=== PATIENT | male | born 1945 | race Hispanic/Latino ===

== ENCOUNTER 2017-03-15 06:31 | Inpatient (IN) | payer OTHER ==
[2017-03-12 14:41] LABS: BASOPHILS # (AUTO) 0.1 (0.0-0.1); BASOPHILS % 0.5 % (0.0-1.0); EOSINOPHILS # (AUTO) 0.3 (0.0-0.4); EOSINOPHILS % 3.1 % (0.0-6.0); HEMATOCRIT 43.5 % (38.2-49.6); HEMOGLOBIN 14.6 g/dL (14.0-18.0); LYMPHOCYTES # (AUTO) 2.2 (1.0-3.2); LYMPHOCYTES % 23.1 % (18.0-39.1); MEAN CORPUSCULAR HEMOGLOBIN 30.4 pg (28-32); MEAN CORPUSCULAR HGB CONC 33.6 g/dL (31-35); MEAN CORPUSCULAR VOLUME 90.4 fL (81-99); MONOCYTES # (AUTO) 1.1 (0.2-0.8); MONOCYTES % 11.2 % (4.4-11.3); NEUTROPHILS # (AUTO) 5.9 (2.1-6.9); NEUTROPHILS % 61.9 % (38.7-80.0); PLATELET COUNT 233 x10e3/uL (140-360); RED BLOOD COUNT 4.81 x10e6/uL (4.3-5.7); RED CELL DISTRIBUTION WIDTH 12.3 % (11.7-14.4)
[~2017-03-15] VITALS: Ht 162.6 cm; Wt 70.3 kg
[~2017-03-15 06:31] MED LIST: ASPIRIN81 MG PO; CEFAZOLIN SOD 2 GM/D5W 50ML 50 ML IV ONE; CELECOXIB 200 MG CAP ONE; DEXAMETHASONE SOD PHOS 10 MG/1 ML VIAL ONE; GABAPENTIN 300 MG CAP ONE; LISINOPRIL2.5 MG PO; METOPROLOL SUCC25 MG PO; NITROGLYCERIN0.4 MG SL; ROPIVACAINE 246.25 MG, EPINEPHRINE HCL 1:1000 0.5 MG, CLONIDINE HCL 0.08 MG, KETOROLAC ... INJ ONE; ZYRTEC10 M3 PO
[2017-03-15] MEDS ORDERED: CALCIUM CARBON500 MG PO (06:32)
[2017-03-15] MEDS ORDERED: VITAMIN D400 UNIT PO (06:32)
[2017-03-15] MEDS ORDERED: TRANEXAMIC ACID 1,000 MG/10 ML ML ONE (06:55)
[2017-03-15] MEDS ORDERED: BACITRACIN 50,000 UNIT VIAL ONE (06:55)
[2017-03-15] MEDS ORDERED: MUPIROCIN 2% OINT 22 GM TUBE ONE (06:55)
[2017-03-15] MEDS: SODIUM CHLORIDE 0.9% 1000ML 1,000 ML IV SCH ×2 (08:54→16:00)
[2017-03-15] MEDS ORDERED: PROMETHAZINE HCL (IM) 25 MG/ML VIAL INJ PRN (09:00)
[2017-03-15] MEDS: CELECOXIB 100 MG CAP PO SCH ×2 (09:00→17:15)
[2017-03-15] MEDS ORDERED: ACETAMINOPHEN 650 MG SUPP PR PRN (09:00)
[2017-03-15] MEDS ORDERED: KETOROLAC TROMETHAMINE 30 MG/ML VIAL IV PRN (09:00)
[2017-03-15] MEDS ORDERED: HYDROCODONE/APAP 5MG-325MG TAB PO PRN (09:00)
[2017-03-15] MEDS ORDERED: ZOLPIDEM TARTRATE 5 MG TAB PO PRN (09:00)
[2017-03-15] MEDS ORDERED: DOCUSATE SODIUM 100 MG CAP PO PRN (09:00)
[2017-03-15] MEDS ORDERED: DIPHENHYDRAMINE HCL INJ 50 MG/ML VIAL IM/IV PRN (09:00)
[2017-03-15] MEDS ORDERED: HYDROCODONE/APAP 7.5MG-325MG 1 EA TAB PO PRN (09:00)
[2017-03-15] MEDS: ASPIRIN 325 MG TAB PO SCH ×2 (09:00→17:15)
[2017-03-15] MEDS ORDERED: ONDANSETRON HCL INJ 2 MG/ML VIAL IV PRN (09:00)
--- NOTE | 2017-03-15 10:57 | Diagnostic Imaging Report ---
PROCEDURE: X-RAY RIGHT KNEE, ONE OR TWO VIEWS COMPARISON: None. INDICATIONS:POST OP RIGHT KNEE FINDINGS: See conclusion. CONCLUSION: Status post total right knee replacement with surrounding soft tissue swelling, air and lee consistent with recent surgery. No acute fractures. Good position of the prosthesis. Jose Rosado D.O. Dictated by: Jose Rosado D.O. on 03/15/2017 at 11:05 Electronically approved by: Jose Rosado D.O. on 03/15/2017 at 11:05
[2017-03-15 12:00] VITALS: BP 113/58
[2017-03-15 12:49] VITALS: BP 113/58
[2017-03-15 12:50] VITALS: BP 113/58
[2017-03-15] MEDS ORDERED: LIDOCAINE HCL 2% LOCAL INJ 5 ML SDV VIAL INJ ONE (12:51)
[2017-03-15] MEDS ORDERED: ONDANSETRON HCL INJ 2 MG/ML VIAL ONE (12:51)
[2017-03-15] MEDS ORDERED: SEVOFLURANE INHAL SOLN 250 ML PEN BTL ONE (12:51)
[2017-03-15] MEDS ORDERED: EPHEDRINE SULFATE INJ 50 MG/10 ML SYR ONE (12:51)
[2017-03-15] MEDS ORDERED: PROPOFOL IV EMULSION 10 MG/ML 20 ML VIAL ONE (12:51)
[2017-03-15] MEDS: ACETAMINOPHEN 1000 MG/100 ML IV SCH ×3 (13:07→23:33)
[2017-03-15] MEDS ORDERED: MIDAZOLAM HCL 2 MG/2 ML VIAL ONE (13:23)
[2017-03-15] MEDS ORDERED: FENTANYL CITRATE/PF 100MCG/2 ML INJ ONE (13:23)
[2017-03-15] MEDS ORDERED: EPINEPHRINE HCL INJ 1 MG/ML AMP ONE (13:40)
[2017-03-15] MEDS ORDERED: BUPIVACAINE 0.25% 30ML SDV INJ ONE (13:40)
[2017-03-15] MEDS ORDERED: CEFAZOLIN SOD 1 GM/NS 50ML 50 ML IV SCH (14:00)
[2017-03-15] MEDS: CEFAZOLIN SOD 1 GM VIAL IV SCH ×2 (15:00→21:46)
[2017-03-15 16:00] VITALS: BP 110/59
[2017-03-15 20:00] VITALS: BP 135/59
[2017-03-16] VITALS: BP 117/56
[2017-03-16 04:00] VITALS: BP 116/61
[2017-03-16] MEDS: ACETAMINOPHEN 1000 MG/100 ML IV SCH (05:19)
[2017-03-16] MEDS: CEFAZOLIN SOD 1 GM VIAL IV SCH (05:19)
[2017-03-16] MEDS: SODIUM CHLORIDE 0.9% 1000ML 1,000 ML IV SCH (05:45)
[2017-03-16 07:11] LABS: HEMATOCRIT 34.7 % (38.2-49.6); HEMOGLOBIN 11.7 g/dL (14.0-18.0)
[2017-03-16 07:42] VITALS: BP 113/69
[2017-03-16 08:00] VITALS: BP 113/69
[2017-03-16] MEDS ORDERED: ACETAMINOPHEN 1000 MG/100 ML IV PRN (09:00)
[2017-03-16] MEDS: CELECOXIB 100 MG CAP PO SCH (09:00)
[2017-03-16] MEDS: ASPIRIN 325 MG TAB PO SCH (09:00)
--- NOTE | 2017-03-16 11:34 | Operative Report ---
DATE OF PROCEDURE: March 15, 2017 PREOPERATIVE DIAGNOSIS: Osteoarthritis, right knee. POSTOPERATIVE DIAGNOSIS: Osteoarthritis, right knee. PROCEDURE: Right total knee arthroplasty. PROPAGATION MANAGER: Bob Quiros PA-C The patient was brought to the operating room for induction of anesthesia. Throughout this case, my PA's assistance was necessary for retraction of soft tissue and positioning of the extremity. This allows for efficient and technically successful execution of the operation and is considered medically necessary. INDICATIONS: The patient is a 71-year-old gentleman with end-stage arthritis of his right knee. He has failed conservative management and would like to proceed with a knee replacement. The risks and benefits of the surgery have been discussed at length. The importance of his participation in therapy has been stressed. He states he understands and wishes to proceed. DESCRIPTION OF PROCEDURE: The patient was brought to the operating room and placed under general anesthetic. He received prophylactic antibiotics, a regional block and tranexamic acid in the holding area. His right lower extremity was prepped and draped in a sterile manner. A preoperative time-out was performed. The extremity was exsanguinated and a proximal tourniquet was inflated to 300 mmHg. An anterior approach with a medial parapatellar arthrotomy was performed. Clear synovial fluid was removed from the joint. Soft tissue releases were performed to bring the knee up into flexion with the patella everted. Meniscal remnants and marginal osteophytes were removed. The cruciate ligaments were sacrificed. A Castillo and Nephew posterior stabilized knee system was used. An extramedullary cutting guide was used to resect the proximal tibia. The tibial baseplate was a size #5. There was fairly dense sclerotic bone on the medial aspect. Additional 2.5 mm drill holes were placed for ultimate improved DATE OF PROCEDURE: March 15, 2017 cement fixation. The central fin punch was impacted. Attention was directed towards the distal femur. An intramedullary cutting guide was used to resect the distal femur in 6 degrees of valgus and rotation referenced off of a combination of landmarks including Juan's line, the epicondylar axis in the posterior condyles. The femoral component was also a size #5. The anterior and posterior cuts were made. Trial reductions were performed. A 9 mm ultra-congruent tibial insert was felt to provide optimal soft tissue balancing in flexion and extension. The patella was resurfaced with a 32 mm x 7.5 mm patellar button. The thickness was checked before and after and was right around 23 mm. Patellar tracking was noted to be concentric. The trial implants were then removed. The knee was thoroughly irrigated with a shower-tip pulsatile lavage. A 100 mL premixed pericapsular JOHN injection was placed into the soft tissue. The components were cemented into place using a single mix of high-viscosity Simplex cement preloaded with antibiotics. Care was taken to remove extravasated cement. The wound was further irrigated while the cement cured. The arthrotomy was then closed with interrupted #1 Ethibond. The knee was put through flexion and extension after each stitch to ensure a secure closure. The skin was closed with subcuticular Vicryl and lee. A sterile bandage was applied. The patient was extubated and transported to the recovery room in stable condition. Blood loss was minimal. All needle and sponge counts were correct. Job#: [id number] SAK
[2017-03-16 11:40] VITALS: BP 126/58
[2017-03-16] MEDS ORDERED: ASPIRIN325 MG PO (12:19)
[2017-03-16] MEDS ORDERED: CELECOXIB 200 MG CAP PO SCH (17:00)
== END 2017-03-16 14:58 | disposition home or self-care (01) | DRG 470 ==
LOC: OR 06:31 → MED/SURG 11:02
PROVIDERS: ADMIT Specialist; ATTEND Specialist
PROC: 0SRC0J9 Replacement of Right Knee Joint with Synthetic Substitute, Cemented, Open Approach (ICD-10-PCS; principal; 2017-03-15 07:30)
DX: M17.11 Unilateral primary osteoarthritis, right knee (principal); I10 Essential (primary) hypertension; K29.70 Gastritis, unspecified, without bleeding
CPT/HCPCS: 36415; 85014; 85018; 85025; 86850; 86900; 86920; 93005; C1713; J0171; J0690; J1100; J1885; J2001; J2250; J2405; J2795; J7030

== ENCOUNTER 2018-09-19 05:30 | Observation (INO) | payer MEDICARE ==
--- NOTE | 2018-09-16 11:32 | Diagnostic Imaging Report ---
EXAM: CHEST 2 VIEWS, PA and lateral DATE: 09/16/2018 Time stamp on exam: 11:11 AM INDICATION: Preoperative for knee surgery COMPARISON: None FINDINGS: LINES/TUBES: None LUNGS: No consolidations or edema. PLEURA: Pleural-parenchymal scarring involving the left upper lung field laterally. HEART AND MEDIASTINUM: Normal size and contour. BONES AND SOFT TISSUES: No acute findings. IMPRESSION: No acute thoracic abnormality. Signed by: Dr. Jose Rosado DO on 09/16/2018 11:29 AM
[2018-09-16 11:41] LABS: BASOPHILS % 0.5 % (0.0-1.0); EOSINOPHILS # (AUTO) 0.3 (0.0-0.4); EOSINOPHILS % 4.2 % (0.0-6.0); HEMATOCRIT 42.2 % (38.2-49.6); HEMOGLOBIN 14.1 g/dL (14.0-18.0); LYMPHOCYTES # (AUTO) 1.8 (1.0-3.2); LYMPHOCYTES % 22.4 % (18.0-39.1); MEAN CORPUSCULAR HEMOGLOBIN 30.4 pg (28-32); MEAN CORPUSCULAR HGB CONC 33.4 g/dL (31-35); MEAN CORPUSCULAR VOLUME 90.9 fL (81-99); MONOCYTES # (AUTO) 0.9 (0.2-0.8); MONOCYTES % 11.7 % (4.4-11.3); NEUTROPHILS # (AUTO) 4.9 (2.1-6.9); NEUTROPHILS % 60.7 % (38.7-80.0); PLATELET COUNT 225 x10e3/uL (140-360); RED BLOOD COUNT 4.64 x10e6/uL (4.3-5.7)
[~2018-09-19] VITALS: Ht 162.6 cm; Wt 78.5 kg
[~2018-09-19 05:30] MED LIST changes: +ASPIR 8181 MG PO; +ASPIRIN325 MG PO; +ATORVASTATIN CA20 MG PO; +CALCIUM CARBON500 MG PO; -CEFAZOLIN SOD 2 GM/D5W 50ML 50 ML IV ONE; -CELECOXIB 200 MG CAP ONE; -DEXAMETHASONE SOD PHOS 10 MG/1 ML VIAL ONE; -GABAPENTIN 300 MG CAP ONE; +PAROXETINE HCL20 MG PO; -ROPIVACAINE 246.25 MG, EPINEPHRINE HCL 1:1000 0.5 MG, CLONIDINE HCL 0.08 MG, KETOROLAC ... INJ ONE; +ROPIVACAINE 246.25 MG, EPINEPHRINE HCL 1:1000 1ML 0.5 MG, CLONIDINE HCL 0.08 MG, KETORO... INJ ONE; +VITAMIN D400 UNIT PO
--- OUTSIDE RECORDS SUMMARY | 2018-09-19 05:37 | XMS REPORT ---
[facility] Address Unknown Phone Unavailable Care Team Providers Care Publicity Manager Name Role Phone PILY MORELOS Unavailable Unavailable Problems This patient has no known problems. Allergies, Adverse Reactions, Alerts This patient has no known allergies or adverse reactions. Medications This patient has no known medications. Results Test Description Test Time Test Comments Text Results Atomic Results Result Comments CHEST 2 VIEWS 2018-09-16 11:28:00 [place] [address] Patient Name: GEOVANNY SANDY MR #: [id number] : 1945 Age/Sex: 73/M Req #: [id number] Adm Physician: Ordered by: PILY MORELOS MD Report #: [id number] Location: OR Room/Bed: Procedure: [id number] DX/CHEST 2 VIEWS Exam Date: 09/16/18 Exam Time: 1030 REPORT STATUS: Signed EXAM: CHEST 2 VIEWS, PA and lateral DATE: 09/16/[address] amp on exam: 11:11 AM INDICATION: Preoperative for knee surgery COMPARISON: None FINDINGS: LINES/TUBES: None LUNGS: No consolidations or edema. PLEURA: Pleural-parenchymal scarring involving the left upper lung field laterally. HEART AND MEDIASTINUM: Normal size and contour. BONES AND SOFT TISSUES: No acute findings. IMPRESSION: No acute thoracic abnormality. Signed by: Dr. Hi Rosado DO on 09/16/2018 11:29 AM Dictated By: HI ROSADO DO 28 Transcribed By: PENNY on 09/16/181128 COPY TO: PILY MORELOS MD KNEE RIGHT 1-2 VIEWS [place] [address] Patient Name: GEOVANNY SANDY MR #: [id number] : 1945 Age/Sex: 71/M Req #: [id number] Adm Physician: PILY MORELOS MD Ordered by: PILY MORELOS MD Report #: [id number] Location: MED/SURG Room/Bed: [facility] Procedure: [id number] DX/KNEE RIGHT 1-2 VIEWS Exam Date: 03/15/17 Exam Time: 0916 REPORT STATUS: Signed PROCEDURE: X-RAY RIGHT KNEE, ONE OR TWO VIEWS COMPARISON: None. INDICATIONS: POST OP RIGHT KNEE FINDINGS: See conclusion. CONCLUSION: Status post total right knee replacement with surrounding soft tissue swelling, air and lee consistent with recent surgery. No acute fractures. Good position of the prosthesis. Hi Rosado D.O. Dictated by: Hi Rosado D.O. on 03/15/2017 at 11:05 Electronically approved by: Hi Rosado D.O. on 03/15/2017 at 11:05 Dictated By: HI ROSADO DO 04 Transcribed By: EMILY on 03/15/171104 COPY TO: PILY MORELOS MD
[2018-09-19] MEDS ORDERED: GABAPENTIN 300 MG CAP ONE (05:58)
[2018-09-19] MEDS ORDERED: DEXAMETHASONE SOD PHOS 10 MG/1 ML VIAL ONE (05:58)
[2018-09-19] MEDS ORDERED: CELECOXIB 200 MG CAP ONE (05:58)
[2018-09-19] MEDS ORDERED: CEFAZOLIN SOD 1 GM/NS 50ML 100 ML IV ONE (05:59)
[2018-09-19] MEDS ORDERED: VANCOMYCIN HCL 1,000 MG ONE (06:00)
[2018-09-19] MEDS ORDERED: SODIUM CHLORIDE 0.9% 500ML 500 ML ONE (06:00)
[2018-09-19] MEDS ORDERED: BACITRACIN 50,000 UNIT VIAL ONE (06:01)
[2018-09-19] MEDS ORDERED: TRANEXAMIC ACID 1,000 MG/10 ML ML ONE (06:01)
[2018-09-19] MEDS ORDERED: METOPROLOL TART25 MG PO (06:27)
[2018-09-19] MEDS ORDERED: ROPIVACAINE 246.25 MG, EPINEPHRINE HCL 1:1000 1ML 0.5 MG, CLONIDINE HCL 0.08 MG, KETORO... INJ ONE ×5 (07:30)
[2018-09-19] MEDS ORDERED: SODIUM CHLORIDE 0.9% 1000ML 1,000 ML IV SCH (08:37)
[2018-09-19] MEDS ORDERED: DIPHENHYDRAMINE HCL INJ 50 MG/ML VIAL IM/IV PRN (08:45)
[2018-09-19] MEDS ORDERED: PROMETHAZINE HCL (IM) 25 MG/ML VIAL INJ PRN (08:45)
[2018-09-19] MEDS ORDERED: ONDANSETRON HCL INJ 2MG/ML 2ML 2 MG/ML VIAL IV PRN (08:45)
[2018-09-19] MEDS ORDERED: KETOROLAC TROMETHAMINE 30 MG/ML VIAL IV PRN ×2 (08:45→10:00)
[2018-09-19] MEDS ORDERED: HYDROCODONE/APAP 7.5MG-325MG 1 EA TAB PO PRN (08:45)
[2018-09-19] MEDS ORDERED: HYDROCODONE/APAP 5MG-325MG TAB PO PRN (08:45)
[2018-09-19] MEDS ORDERED: DOCUSATE SODIUM 100 MG CAP PO PRN (08:45)
[2018-09-19] MEDS ORDERED: ZOLPIDEM TARTRATE 5 MG TAB PO PRN (08:45)
[2018-09-19] MEDS ORDERED: ACETAMINOPHEN 650 MG SUPP PR PRN (08:45)
[2018-09-19] MEDS ORDERED: CELECOXIB 100 MG CAP PO SCH (09:00)
--- NOTE | 2018-09-19 09:30 | NUR ---
RECEIVED REPORT FROM ONOFRE IN PACU AWAITING FOR PT TO ARRIVE TO FLOOR
[2018-09-19 09:45] VITALS: BP 123/69
--- NOTE | 2018-09-19 09:45 | NUR ---
RECEIVED PT TO FLOOR AA0X3 ( DROWSY), DAUGHTER IS AT BEDSIDE PT IS IN NO S.S OF DISTRESS DENIES PAIN PT HAS A LEFT HU WRAP COVERING LEFT TOTAL KNEE REPLACEMENT TODAY DRESSING IS DRY AND INTACT PT HAS BILATERAL FOOT PUMPS PRESENT AND SED ON RIGHT LEG PT HAS AN IV ACCESS TO THE RIGHT HAND 2O WITH LR RUNNING PT IS ON CARDIAC DIET, DENIES BEING HUNGRY STATES HE WANTS TO WAIT FOR LUNCH WILL CONTINUE TO MONITOR PT AT THIS TIME , SIDE RAILSX2, BED WHEELS LOCKED, CALL LIGHT IS WITHIN EASY REACH, INSTRUCTED TO CALL FOR ASSISTANCE IF NEEDED
[2018-09-19 09:47] VITALS: BP 123/67
--- NOTE | 2018-09-19 10:12 | Diagnostic Imaging Report ---
Exam: Left knee 2 views History: Postoperative Comparison: None. Findings: See impression Impression: Postsurgical changes of total left knee arthroplasty with intact hardware and expected subcutaneous gas and skin lee. Signed by: Dr. Don Phelps M.D. on 09/19/2018 10:09 AM
--- NOTE | 2018-09-19 10:16 | NUR ---
LEFT MD LAUREN A VOICEMAIL REGARDING CONSULT FOR [facility].
[2018-09-19] MEDS: ASPIRIN 325 MG TAB PO SCH ×2 (10:48→16:38)
--- NOTE | 2018-09-19 10:49 | NUR ---
MD LEONIDAS BLAKE RESUMPTION OF HOME MEDICATION
--- NOTE | 2018-09-19 11:10 | Operative Report ---
DATE OF PROCEDURE: 09/19/2018 SURGEON: Don Anderson MD CHIEF SUPPLY CHAIN OFFICER: Bob Quiros PA-C PREOPERATIVE DIAGNOSIS: Osteoarthritis, left knee. POSTOPERATIVE DIAGNOSIS: Osteoarthritis, left knee. PROCEDURE: Left total knee arthroplasty. INDICATIONS: The patient is a 73-year-old gentleman, who has end-stage arthritis of his left knee. He has failed conservative management and would like to proceed with a left total knee replacement. He has been through a right total knee replacement a few years ago. He is happy with the progress and understands the risks and benefits of the procedure. PROCEDURE IN DETAIL: The patient was brought to the operating room and placed under general anesthetic. He received a regional block, tranexamic acid and prophylactic antibiotics in the holding area. His left lower extremity was prepped and draped in a sterile manner. A preoperative time-out was performed. The extremity was exsanguinated and a proximal tourniquet was inflated to 300 mmHg. An anterior approach with a medial parapatellar arthrotomy was performed. Clear synovial fluid was removed from the joint. Soft tissue releases were performed to bring the knee up into flexion with the patella everted. Meniscal remnants, marginal osteophytes in the anterior cruciate ligament were resected. A Castillo and [employer] knee system was used. An extramedullary cutting guide was used to resect the proximal tibia. The tibial base plate was a size #5. Dense sclerotic bone on the medial compartment was further drilled for better ultimate cement fixation. The tibial base plate was a size 5. This central fin punch was impacted and attention was directed towards the distal femur. An intramedullary cutting guide was used to resect the distal femur in 5 degrees of valgus. External rotation was referenced off a combination of landmarks including [place] line, the epicondylar axis and the posterior condyles. The femoral component was also a size #5. The anterior and posterior cuts were made. Trial reduction was performed. A 9 mm ultracongruent tibial insert provided appropriate soft tissue balancing in full extension and 90 degrees of flexion. The patella was then resurfaced with a 32 mm x 9 mm patellar button. The thickness was checked before and after and was right around 25 mm. Patellar tracking was noted to be concentric. The trial implants were removed. The knee was thoroughly irrigated with a shower tip pulsatile lavage. A 100 mL premixed pericapsular JOHN injection was placed into the surrounding soft tissue. The components were cemented into place using a single mix of Palacos cement preloaded with antibiotics. Care was taken to remove all extravasated cement. The wound was further irrigated while the cement cured. 500 mg of vancomycin powder was sprinkled into the joint. The bone cuts had been lubricated and the knee had been irrigated throughout the case with a spray mixture of polymyxin and vancomycin spray. The arthrotomy was then closed with interrupted #1 Ethibond. The knee was put through flexion and extension to ensure a secure closure. The skin was closed with subcuticular Vicryl and lee. A sterile Aquacel bandage was applied. The patient was extubated and transported to the recovery room in stable condition. Blood loss was minimal. All needle and sponge counts were correct. Don Anderson MD DR/MARIA TERESA /[id number]
[2018-09-19] MEDS: ACETAMINOPHEN 1000 MG/100 ML IV SCH ×3 (12:10→23:46)
[2018-09-19 12:24] VITALS: BP 125/58
[2018-09-19] MEDS: CEFAZOLIN SOD 1 GM/NS 50ML 50 ML IV SCH ×2 (14:30→21:33)
[2018-09-19] MEDS: METOPROLOL TARTRATE 25 MG TAB PO SCH (15:38)
--- NOTE | 2018-09-19 16:02 | NUR ---
pt voided s/p left knee replacement (500cc into urinal)
[2018-09-19] MEDS: CELECOXIB 200 MG CAP PO SCH (16:38)
[2018-09-19] MEDS ORDERED: SEVOFLURANE INHAL SOLN 250 ML PEN BTL ONE (17:27)
[2018-09-19] MEDS ORDERED: LIDOCAINE HCL 2% LOCAL INJ 5 ML SDV VIAL INJ ONE (17:27)
[2018-09-19] MEDS ORDERED: ONDANSETRON HCL INJ 2MG/ML 2ML 2 MG/ML VIAL ONE (17:27)
[2018-09-19] MEDS ORDERED: EPHEDRINE SULFATE INJ 50 MG/10 ML SYR ONE (17:27)
[2018-09-19] MEDS ORDERED: KETOROLAC TROMETHAMINE 30 MG/ML VIAL ONE (17:27)
[2018-09-19] MEDS ORDERED: PROPOFOL IV EMULSION 10 MG/ML 20 ML VIAL ONE (17:27)
[2018-09-19] MEDS ORDERED: LIDOCAINE 2% /EPINEPHRINE 20 ML SDV INJ ONE (18:09)
[2018-09-19] MEDS ORDERED: ROPIVACAINE 0.5% 5 MG/ML 30 ML SDV ONE (18:09)
[2018-09-19] MEDS ORDERED: MIDAZOLAM HCL 2 MG/2 ML VIAL ONE (18:42)
[2018-09-19] MEDS ORDERED: FENTANYL CITRATE/PF 100MCG/2 ML INJ ONE (18:42)
[2018-09-19 20:08] VITALS: BP 123/58
[2018-09-19] MEDS ORDERED: ATORVASTATIN 40 MG TAB PO SCH (21:00)
[2018-09-19] MEDS ORDERED: ATORVASTATIN 20 MG TAB PO SCH (21:00)
[2018-09-19 21:51] VITALS: BP 123/58
[2018-09-19 23:55] VITALS: BP 115/57
[2018-09-20 03:58] VITALS: BP 110/65
--- NOTE | 2018-09-20 04:00 | NUR ---
PATIENT WAS OBSERVED TO HAVE SCANT AMOUNT OF BLOOD FROM THE HU WRAP ON THE LEFT LEG. RN ASKED PATIENT IF HE BUMP HIMSELF SOMEWHERE OR HE IS IN PAIN. PATIENT STATED HE DID NOT BUMP HIS LEFT LEG ANYWHERE BUT HE GOT UP BY HIMSELF EARLIER TO REMOVE THE WALL CLOCK BECAUSE THE TICKING SOUND KEEPS HIM AWAKE. HE LOWERED HIMSELF TO THE FLOOR WHEN HE FELT THAT HE WILL BE OUT OF BALANCED TO PREVENT FROM FALLING. HE THEN PICK HIMSELF UP AFTER FEW MINUTES AND WENT BACK TO BED BY HIMSELF. PATIENT DID NOT NOTIFY ANY STAFF. HE IS AWARE THAT HE NEEDS ASSISTANCE WHEN HE WANTS TO GET OUT OF THE BED. VITAL SIGNS WITHIN NORMAL LIMITS. MD NOTIFIED.
--- NOTE | 2018-09-20 05:30 | NUR ---
PATIENT DAUGHTER IS UNABLE TO REACH. NO ANSWER PHONE NUMBER
[2018-09-20] MEDS: ACETAMINOPHEN 1000 MG/100 ML IV SCH (05:43)
[2018-09-20 05:57] LABS: HEMATOCRIT 33.4 % (38.2-49.6); HEMOGLOBIN 11.1 g/dL (14.0-18.0)
--- NOTE | 2018-09-20 06:00 | NUR ---
CPM STARTED AT 60
[2018-09-20] MEDS: CEFAZOLIN SOD 1 GM/NS 50ML 50 ML IV SCH (06:17)
--- NOTE | 2018-09-20 07:15 | NUR ---
PT RESTING IN BED AA0X3. PT IS CURRENTLY ON CPM TOLERATING WELL LEFT KNEE DRESSING IS SEMI SATURATED WITH DRY BLOOD NO ACTIVE BLEEDING NOTED BILATERAL SEDS PRESENT AND FOOT PUMPS IV ACCESS NOT PATENT . DC PRESSURE DRESSING APPLIED AND TAPED WILL CONTINUE TO MONITOR PT CLOSELY, SIDE RAILSX2, BED WHEELS LOCKED, CALL LIGHT IS WITHIN EASY REACH, INSTRUCTED TO CALL FOR ASSISTANCE IF NEEDED
[2018-09-20] MEDS ORDERED: ACETAMINOPHEN 1000 MG/100 ML IV PRN (08:45)
[2018-09-20 08:50] VITALS: BP 113/53
[2018-09-20 09:00] VITALS: BP 113/53
[2018-09-20] MEDS: METOPROLOL TARTRATE 25 MG TAB PO SCH (09:00)
[2018-09-20] MEDS ORDERED: LISINOPRIL 2.5 MG TAB PO SCH (09:00)
[2018-09-20] MEDS ORDERED: PAROXETINE HCL 20 MG TAB PO SCH (09:00)
[2018-09-20] MEDS: CELECOXIB 200 MG CAP PO SCH (09:00)
[2018-09-20] MEDS: ASPIRIN 325 MG TAB PO SCH (09:00)
[2018-09-20] MEDS ORDERED: LISINOPRIL 10 MG TAB PO SCH (09:00)
--- NOTE | 2018-09-20 10:55 | NUR ---
Visit made by the Spiritual Care Department Pastoral Visitor, Cheri Perdue. PV provided pastoral presence, prayer, hospitality, and supportive listening. Pastoral Visitor informed pt/family of the scope of [employer] and availability. SARAHI ART Track Broom Operator Spiritual Care Department O: [phone] Pager: [phone] ([phone] number calling from)
[2018-09-20 11:56] VITALS: BP 116/76
[2018-09-20] MEDS ORDERED: ONDANSETRON HCL 4 MG ORAL DISINTEGRATING TAB PO PRN (12:45)
--- NOTE | 2018-09-20 14:08 | NUR ---
cleaned left knee surgical site with saline and sterile gauze. covered with fresh aquacel dressing. gave pt dressing change supplies prn pt discharge instruction and prescriptions given. pt verbalized understanding pt has no iv access pt is now off unit to home via wheel chair
--- NOTE | 2018-12-22 06:12 | Discharge Summary ---
CHIEF COMPLAINT: Left knee pain. HISTORY OF PRESENT ILLNESS: This patient is a 73-year-old male, who complains of left knee pain. His x-rays are consistent with end-stage osteoarthritis of the left knee. He has failed conservative management and would like to proceed with more aggressive intervention. The risks and benefits of a left total knee replacement were explained. The patient states he understands and wished to proceed. HOSPITAL COURSE: The patient underwent a left total knee replacement without complications. He was then transferred to the recovery room and then the floor in stable condition. He did nicely with physical therapy. He was able to go home on postoperative day #1. PRINCIPAL DIAGNOSIS: Osteoarthritis, left knee. PRINCIPAL PROCEDURE: Left total knee replacement. DISCHARGE INSTRUCTIONS: The patient was discharged home. He had home health and physical therapy arranged. He could be weightbearing as tolerated with a rolling walker. He was to take aspirin twice a day for deep venous thrombosis prophylaxis. He was to resume his home medications as directed. He was instructed to follow up in our office in 8 to 10 days. Dictated by Bob Quiros PA-C MD MARILEE Brown/PRASHANTL /[id number] cc: Bob Quiros PA-C
== END 2018-09-20 14:09 | disposition home health service (06) ==
LOC: OR 05:30 → PACU V 08:39 → MED/SURG 09:38
PROVIDERS: ADMIT Specialist; ATTEND Specialist
DX: M17.0 Bilateral primary osteoarthritis of knee (principal); I10 Essential (primary) hypertension; K29.70 Gastritis, unspecified, without bleeding; Z96.651 Presence of right artificial knee joint
CPT/HCPCS: 27447; 36415 ×2; 71046; 73560; 85014; 85018; 85025; 86850; 86900; 86920; 93005; 97110; 97116 ×2; 97161; C1713 ×2; G0378 ×2; J0131 ×2; J0171 ×2; J0690 ×2; J1100; J1885 ×2; J2001 ×2; J2250; J2405; J2704; J2795 ×2; J3370; J7030; J7040; J3010

== ENCOUNTER → 2019-05-26 | Outpatient (CLI) | payer OTHER ==
[~2019-05-26] MED LIST changes: +METOPROLOL TART25 MG PO; -ROPIVACAINE 246.25 MG, EPINEPHRINE HCL 1:1000 1ML 0.5 MG, CLONIDINE HCL 0.08 MG, KETORO... INJ ONE
--- NOTE | 2019-06-07 07:15 | Polysomnography ---
DATE OF STUDY: 05/26/2019 REFERRING PHYSICIAN: STUDY PERFORMED: Titration polysomnography. LOCATION: [facility]. FINDINGS: Mr. Hernández is a 74-year-old gentleman with height of 5 feet and 4 inches, weight of 182 pounds, BMI of 31.2, neck size of 15.5 and [place] score of 6, was referred to [facility] for a titration study. During this test, patient was in bed for 374 minutes. Total sleep time was 256 minutes with a sleep efficiency of 68.4%. Sleep onset was at 19.5 minutes, REM latency was 72.5 minutes. The patient spent 8.2% of the sleep time in stage I, 49% of the time in stage 2, 12.5% in stage III, and 29.7% of the time in REM sleep. Heart rate varied between 42 to 100 per minute. There was no significant cardiac event. The patient continued to exhibit significant periodic limb movement with the index of 20.6 times per hour. As per protocol, he was initiated on the CPAP at 5 cm of water and the final pressure was achieved at the CPAP of 12 cm of water. His AHI at 12 cm of water was 0.7 events per hour. RECOMMENDATIONS: 1. Based on this study, patient will be initiated on CPAP at 12 cm of water with a mask of his choice. 2. Avoid sedative, hypnotics, narcotics, alcohol, antihistamines. 3. Once patient starts using the CPAP machine, evaluate in 2 months for effectiveness of therapy and any technical issues which need to be addressed. If required, he can be referred to my office for further evaluation. Mike Bower MD MP/MARIA TERESA /[id number]
== END ==
LOC: SLEEP 19:21
PROVIDERS: ATTEND Internal Medicine
DX: G47.33 Obstructive sleep apnea (adult) (pediatric) (principal)
CPT/HCPCS: 95811

== ENCOUNTER → 2019-07-26 | Outpatient (CLI) | payer OTHER | LOC: MAMMO 10:39 | PROVIDERS: ATTEND Internal Medicine | DX: N61.0 Mastitis without abscess (principal) | CPT/HCPCS: 77066 ==

== ENCOUNTER → 2019-12-21 | Day surgery (SDC) | payer OTHER ==
[2019-12-18 11:23] LABS: BASOPHILS % 0.5 % (0.0-1.0); EOSINOPHILS # (AUTO) 0.2 (0.0-0.4); EOSINOPHILS % 2.4 % (0.0-6.0); HEMATOCRIT 44.2 % (38.2-49.6); HEMOGLOBIN 14.7 g/dL (14.0-18.0); LYMPHOCYTES # (AUTO) 1.6 (1.0-3.2); LYMPHOCYTES % 19.7 % (18.0-39.1); MEAN CORPUSCULAR HEMOGLOBIN 29.9 pg (28-32); MEAN CORPUSCULAR HGB CONC 33.3 g/dL (31-35); MEAN CORPUSCULAR VOLUME 89.8 fL (81-99); MONOCYTES % 12.1 % (4.4-11.3); NEUTROPHILS # (AUTO) 5.2 (2.1-6.9); NEUTROPHILS % 64.9 % (38.7-80.0); PLATELET COUNT 234 x10e3/uL (140-360); RED BLOOD COUNT 4.92 x10e6/uL (4.3-5.7); RED CELL DISTRIBUTION WIDTH 13.2 % (11.7-14.4)
[~2019-12-21] MED LIST changes: +FENTANYL CITRATE/PF 100MCG/2 ML INJ ONE; +LIDOCAINE HCL 2% LOCAL INJ 5 ML SDV VIAL INJ ONE; +MIDAZOLAM HCL 2 MG/2 ML VIAL ONE; +PROPOFOL IV EMULSION 10 MG/ML 20 ML VIAL ONE
[2019-12-21 08:35] VITALS: BP 115/73
== END | disposition home or self-care (01) ==
LOC: OR 06:05
PROVIDERS: ATTEND Internal Medicine Gastroenterology
DX: K29.50 Unspecified chronic gastritis without bleeding (principal); K22.2 Esophageal obstruction; K44.9 Diaphragmatic hernia without obstruction or gangrene; K21.0 Gastro-esophageal reflux disease with esophagitis; I10 Essential (primary) hypertension; Z71.3 Dietary counseling and surveillance; E66.9 Obesity, unspecified; E78.5 Hyperlipidemia, unspecified; F32.9 Major depressive disorder, single episode, unspecified; Z01.810 Encounter for preprocedural cardiovascular examination; Z01.812 Encounter for preprocedural laboratory examination; Z11.59 Encounter for screening for other viral diseases; Z79.82 Long term (current) use of aspirin; Z79.84 Long term (current) use of oral hypoglycemic drugs; Z68.30 Body mass index [BMI] 30.0-30.9, adult
CPT/HCPCS: 36415; 43239; 85025; 93005; J2001; J2250; J3010; U0002

== ENCOUNTER → 2020-02-09 | Outpatient (CLI) | payer OTHER ==
[~2020-02-09] MED LIST changes: -FENTANYL CITRATE/PF 100MCG/2 ML INJ ONE; +IOPAMIDOL 370 MG/ML 200 ML INFUS..BTL INJ ONE; -LIDOCAINE HCL 2% LOCAL INJ 5 ML SDV VIAL INJ ONE; -MIDAZOLAM HCL 2 MG/2 ML VIAL ONE; -PROPOFOL IV EMULSION 10 MG/ML 20 ML VIAL ONE; +SODIUM CHLORIDE 0.9% 100 ML ONE
[2020-02-09 14:26] LABS: BLOOD UREA NITROGEN 19 mg/dL (7-26); BUN/CREATININE RATIO 21 (6-25); EST GLOMERULAR FILTRATION RATE > 60 ML/MIN (60-)
== END ==
LOC: CT 13:36
PROVIDERS: ATTEND Internal Medicine Cardiovascular Disease
DX: R07.9 Chest pain, unspecified (principal); I71.9 Aortic aneurysm of unspecified site, without rupture
CPT/HCPCS: 36415; 71275; 82565; 84520; J7050; Q9967

== ENCOUNTER → 2020-02-13 | Outpatient (CLI) | payer OTHER ==
[~2020-02-13] MED LIST changes: +NITROGLYCERIN 0.4 MG SUBL ONE
[2020-02-13 08:00] LABS: BLOOD UREA NITROGEN 17 mg/dL (7-26); BUN/CREATININE RATIO 19 (6-25); EST GLOMERULAR FILTRATION RATE > 60 ML/MIN (60-)
== END ==
LOC: CT 06:59
PROVIDERS: ATTEND Internal Medicine Cardiovascular Disease
DX: R07.9 Chest pain, unspecified (principal); I71.9 Aortic aneurysm of unspecified site, without rupture
CPT/HCPCS: 36415; 75574; 82565; 84520; J7050; Q9967

== ENCOUNTER → 2021-06-10 | Outpatient (CLI) | payer OTHER ==
[~2021-06-10] MED LIST changes: +METOPROLOL TARTRATE INJ 1 MG/ML VIAL ONE; -NITROGLYCERIN 0.4 MG SUBL ONE
[2021-06-10 09:10] LABS: CREATININE, SERUM 0.86 mg/dL (0.72-1.25)
== END ==
LOC: CT 07:45
PROVIDERS: ATTEND Internal Medicine Cardiovascular Disease
DX: R06.02 Shortness of breath (principal); R07.9 Chest pain, unspecified
CPT/HCPCS: 36415; 75574; 82565; 84520; J7050; Q9967

== ENCOUNTER → 2021-08-15 | Outpatient (CLI) | payer OTHER ==
[~2021-08-15] MED LIST changes: -IOPAMIDOL 370 MG/ML 200 ML INFUS..BTL INJ ONE; -METOPROLOL TARTRATE INJ 1 MG/ML VIAL ONE; -SODIUM CHLORIDE 0.9% 100 ML ONE
== END ==
LOC: RESP 09:42
PROVIDERS: ATTEND Internal Medicine Pulmonary Disease
DX: R06.02 Shortness of breath (principal)
CPT/HCPCS: 94060; 94640; 94727; 94729